=== PATIENT | male | born 1965 | race Caucasian/White ===

== ENCOUNTER 2019-02-12 14:18 | Inpatient (IN) | payer OTHER ==
[2019-02-12] MEDS ORDERED: Dextrose 50% Abboject 50 ML SYRINGE SLOW IVP PRN (15:04)
[2019-02-12] MEDS ORDERED: Ondansetron PF 4 MG/2 ML Vial IVP PRN (15:04)
[2019-02-12] MEDS ORDERED: Dextrose 5% in Water 1,000 ML IV PRN (15:04)
[2019-02-12] MEDS ORDERED: traMADol HCl 50 MG TAB PO PRN ×2 (15:07)
[2019-02-12 15:31] LABS: Hemoglobin 15.2 g/dL (14.0-18.0)
[2019-02-12] MEDS: Acetaminophen 500 MG TAB PO SCH ×2 (18:35→23:04)
[2019-02-12] MEDS: Nicotine 14 MG PATCH TD SCH (18:36)
[2019-02-12] MEDS: Senokot S 8.6-50 MG TAB PO SCH (20:33)
[2019-02-12] MEDS: Gabapentin 300 MG CAP PO SCH (20:33)
[2019-02-12] MEDS: Famotidine/PF 20 mg/2ml Vial SLOW IVP SCH (20:33)
[2019-02-12] MEDS: Sodium Chloride 0.9% 1,000 ML IV SCH (20:34)
[2019-02-12 21:37] LABS: Hemoglobin 15.7 g/dL (14.0-18.0)
[2019-02-12 22:28] VITALS: BMI 22.5
[2019-02-13] MEDS: Sodium Chloride 0.9% 1,000 ML IV SCH ×3 (01:23→16:15)
[2019-02-13] MEDS: Acetaminophen 500 MG TAB PO SCH ×4 (07:43→23:06)
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
[2019-02-13] MEDS: Polyethylene Glycol 3350 17 GM Packet PO SCH (08:37)
[2019-02-13] MEDS: Senokot S 8.6-50 MG TAB PO SCH ×2 (08:37→21:08)
[2019-02-13] MEDS: Famotidine/PF 20 mg/2ml Vial SLOW IVP SCH (08:38)
[2019-02-13] MEDS: Gabapentin 300 MG CAP PO SCH ×2 (08:38→21:08)
[2019-02-13] MEDS ORDERED: FLU VACC QS2019-20(6MOS UP)/PF 60 MCG/0.5 ML SYRINGE IM ONE (09:00)
[2019-02-13] MEDS ORDERED: Prevnar 13-Val Conj/PF 0.5 ML SYRINGE IM ONE (09:00)
[2019-02-13 09:52] LABS: Hemoglobin 14.4 g/dL (14.0-18.0)
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
[2019-02-13] MEDS: Nicotine 14 MG PATCH TD SCH (18:05)
[2019-02-13] MEDS ORDERED: Milk Of Magnesia 30 ML UDCUP PO SCH (21:45)
[2019-02-14] MEDS: Sodium Chloride 0.9% 1,000 ML IV SCH ×2 (00:52→07:59)
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
[2019-02-14 05:19] LABS: #Eosinphils 0.1 thou/uL (0.0-0.7); #Lymphocytes 1.6 thou/uL (1.20-3.40); %Basophils 0.4 % (0.0-1.0); %Eosinophils 1.1 % (0.0-10.0); %Lymphocytes 18.7 % (21.0-51.0); %Monocytes 11.3 % (0.0-10.0); %Neutrophils 68.5 % (42.0-75.0); Hemoglobin 14.3 g/dL (14.0-18.0); Mean Corpuscular HGB CONC 33.5 g/dL (32.0-36.0); Mean Corpuscular Hemoglobin 32.2 pg (27.0-31.0); Mean Corpuscular Volume 95.9 fL (78.0-98.0); Mean Platelet Volume 9.8 fL (7.4-10.4); Platelet Count 147 thou/uL (130-400); RBC Distribution Width 12.1 % (11.5-14.5); Red Blood Cell (RBC) Count 4.45 mill/uL (4.70-6.10); White Blood Cell (WBC) Count 8.8 thou/uL (4.8-10.8)
[2019-02-14] MEDS: Acetaminophen 500 MG TAB PO SCH ×2 (06:19→13:05)
[2019-02-14 07:22] VITALS: TEMP 98.1
[2019-02-14] MEDS: Senokot S 8.6-50 MG TAB PO SCH (09:05)
[2019-02-14] MEDS: Polyethylene Glycol 3350 17 GM Packet PO SCH (09:05)
[2019-02-14] MEDS: Gabapentin 300 MG CAP PO SCH (09:05)
[2019-02-14 11:21] VITALS: BP 111/69
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
== END 2019-02-14 14:05 | disposition home or self-care (01) | DRG 816 ==
LOC: ERS 14:18 → SURG A 17:55
PROVIDERS: ADMIT Emergency Medicine; ATTEND Surgery
DX: S36.031A Moderate laceration of spleen, initial encounter (principal); Y04.8XXA Assault by other bodily force, initial encounter; I10 Essential (primary) hypertension; J44.9 Chronic obstructive pulmonary disease, unspecified; M19.90 Unspecified osteoarthritis, unspecified site; Z90.49 Acquired absence of other specified parts of digestive tract; Z87.891 Personal history of nicotine dependence; Z91.19 Patient's noncompliance with other medical treatment and regimen; Z88.1 Allergy status to other antibiotic agents
CPT/HCPCS: 36415; 85014; 85018; 85025; 90471; 90670; 90686; 99285; G0008; G0009; S0028